=== PATIENT | male | born 1965 | race Caucasian/White ===

== ENCOUNTER 2021-02-04 13:30 | Emergency (ER) | payer BC ==
[~2021-02-04] VITALS: Ht 175.3 cm; Wt 98.0 kg
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
[2021-02-04 15:33] VITALS: BP 152/69
--- NOTE | 2021-02-04 15:33 | NUR ---
PATIENT A/OX4, BREATHING EVEN AND UNLABORED, NOSOB NOTED. AMBULATORY WITH STEADY GAIT. NO DISTRESS NOTED. Patient discharged to home in stable condition. Written and verbal after care instructions given. Patient verbalizes understanding of instruction.
== END 2021-02-04 15:33 | disposition home or self-care (01) ==
LOC: ER 13:35
DX: R42 Dizziness and giddiness (principal); I10 Essential (primary) hypertension; V49.69XA Unspecified car occupant injured in collision with other motor vehicles in traffic accident, initial encounter; Y93.89 Activity, other specified; Y92.413 State road as the place of occurrence of the external cause; Y99.8 Other external cause status